=== PATIENT | female | born 1955 | race Caucasian/White ===

== ENCOUNTER → 2016-05-19 | Outpatient (CLI) | payer OTHER ==
--- NOTE | 2016-05-19 08:48 | US ---
Bilateral Duplex Carotid Sonography Clinical Indications: Hypertension. Visual impairment. Technique: The cervical portions of the carotid and vertebral arteries were imaged and interrogated by color and pulsed Doppler. Spectral analysis was performed. Cine clips are stored on PACS. Comparison Study: None relevant. Findings: Right Carotid Artery: Right ICA peak systolic velocity = 76 cm/sec Right CCA peak systolic velocity = 65 cm/sec Right ECA peak systolic velocity = 60 cm/sec Right ICA/CCA systolic velocity ratio = 1.2 Velocities correlate to 0-49% diameter stenosis of the origin of the right internal carotid artery wi th respect to the normal distal internal carotid artery. Moderate plaque is present at the bulb. Left Carotid Artery: Left ICA peak systolic velocity = 75 cm/sec Left CCA peak systolic velocity = 74 cm/sec Left ECA peak systolic velocity = 83 cm/sec Left ICA/CCA systolic velocity ratio = 1.0 Velocities correlate to 0-49% diameter stenosis of the origin of the left internal carotid artery wit h respect to the normal distal internal carotid artery. Mild plaque is present at the bulb. Vertebral Arteries: Antegrade flow is shown by pulsed Doppler of each vertebral artery. Impression: 1. There is no evidence of a flow-limiting carotid stenosis. 2. Velocities correlate to 0-49% diameter stenosis of the origin of the right internal carotid artery . 3. Velocities correlate to 0-49% diameter stenosis of the origin of the left internal carotid artery. 4. Mild to moderate plaque is present at both bulbs. Measurement of carotid stenosis is based on velocity parameters that correlate the residual internal carotid diameter with [place] Symptomatic Carotid Endarterectomy Trial (NASCET) based stenosis levels.
--- NOTE | 2016-05-19 09:36 | MR ---
MRI of the Brain (Without Contrast) 0840 hour Clinical Indication: G 43.109, migraine with aura, left transient ischemic attack. Technique: T1-weighted images were acquired axially and sagittally from the foramen magnum to the ve rtex. Axial fast inversion recovery, fast T2-weighted, and diffusion-weighted axial images were obta ined without contrast. Findings: The ventricles, cisterns, and sulci are normal without atrophy. No hydrocephalus, midline shift, herniation, or epidural/subdural hematomas. No intracranial hemorrhage or masses. Diffusion we ighted sequence demonstrates no acute infarct. Cerebellar tonsils are in normal position. Pituitary g land is normal in size. Normal signal flow-void in the superior sagittal sinus, basilar artery, and b ilateral internal carotid arteries indicating patency. Paranasal sinuses and mastoid air cells are cl ear. Scattered hyperintense T2/FLAIR signal foci throughout bilateral cerebral white matter, especial ly bilateral frontal lobes. Bilateral orbits appear normal without evidence of orbital masses. Impression: 1. No sinusitis. 2. No acute infarct, hemorrhage, hydrocephalus, mass effect, or herniation. 3. Multiple nonspecific hyperintense T2/FLAIR signal abnormalities in the white matter of bilateral c erebral hemispheres. Differential diagnosis includes moderate microvascular ischemic gliosis, post-in fectious/post-inflammatory sequela, or migraine-related sequela.
== END ==
LOC: FIMAGING 07:31
PROVIDERS: ATTEND Family Medicine
DX: G43.109 Migraine with aura, not intractable, without status migrainosus (principal); G45.9 Transient cerebral ischemic attack, unspecified